=== PATIENT | female | born 1935 | race Caucasian/White ===

== ENCOUNTER 2016-05-27 13:50 | Inpatient (IN) | payer OTHER, MEDICARE ==
--- NOTE | 2016-05-27 14:46 | EDPHY ---
H & P Stated Complaint: intermittent SOB worsening x 2-3 days, but ongoing x several months Time Seen by Provider: 05/27/16 14:18 HPI/ROS: CHIEF COMPLAINT: Exertional shortness of breath HISTORY OF PRESENT ILLNESS: 81-year-old female presents with exertional shortness of breath. Onset a dry cough 1 week ago. Gradually increasing shortness of breath with exertion since then. She is short of breath with minimal exertion, such as walking to the bathroom. Associated with generalized weakness. She has been mainly sitting in a chair or lying in bed for the past few days. 2 days ago, she had multiple symptoms including nausea, dizziness and shortness of breath. She felt somewhat better yesterday, though the symptoms returned today. She has also had a vague achiness sensation in her chest, though she is unable to describe the duration of the pain. No prior similar symptoms. No known heart disease. REVIEW OF SYSTEMS: Constitutional: No fever, no chills Eyes: No visual changes ENT: No sore throat Gastrointestinal: No nausea, no vomiting, no abdominal pain Genitourinary: no dysuria Musculoskeletal: No leg pain or swelling Skin: No rash Neurological: No headache, no numbness Psychiatric: No depression - Personal History Current Tetanus/Diphtheria Vaccine: Yes Current Tetanus Diphtheria and Acellular Pertussis (TDAP): Yes Tetanus Vaccine Date: 2012 - Medical/Surgical History Hx Asthma: No Hx Chronic Respiratory Disease: No Hx Diabetes: No Hx Cardiac Disease: No Hx Renal Disease: Yes Hx Cirrhosis: No Hx Alcoholism: No Hx HIV/AIDS: No Hx Splenectomy or Spleen Trauma: No Other PMH: HTN, depression, anxiety, polymyalgia rheumatica, spinal stenosis, back surgery L2-3-4-5, cholecystectomy, cataract removal, renal impairment, KAIBAB - Social History Smoking Status: Never smoked Constitutional: Initial Vital Signs Temperature (C) 37.0 C 05/27/16 14:04 Heart Rate 94 05/27/16 14:04 Respiratory Rate 16 05/27/16 14:04 Blood Pressure 134/76 H 05/27/16 14:04 O2 Sat (%) 91 L 05/27/16 14:04 O2 Delivery Mode Room Air O2 (L/minute) 2 Allergies/Adverse Reactions: Sulfa (Sulfonamide Antibiotics) Allergy (Verified 05/27/16 16:29) Home Medications: Medication Instructions Recorded ALPRAZolam [Xanax 0.25 MG (*)] 0.25 mg PO TID 05/27/16 Aspirin EC [Aspirin EC 81 mg (*)] 81 mg PO HS 05/27/16 Atenolol [Tenormin 25 mg (*)] 25 mg PO DAILY 05/27/16 Fluticasone Nasal [Flonase Nasal 120 sprays NS HS 05/27/16 [place]] Omeprazole 20 mg PO DAILY 05/27/16 Propylene Glycol/Peg 400 [Systane 1 - 2 drops OP Q4H PRN 05/27/16 0.3-0.4% Eye Drops] amLODIPine BESYLATE [Norvasc 5 mg 2.5 - 5 mg PO HS 05/27/16 (*)] buPROPion [Wellbutrin 75mg (*)] 75 mg PO BID 05/27/16 predniSONE 4 mg PO DAILY 05/27/16 predniSONE 5 mg PO DAILY 05/27/16 Medical Decision Making - Diagnostics EKG Interpretation: EKG interpreted by me reveals normal sinus rhythm, rate 86, no ST or T segment changes. Imaging: Chest x-ray independently reviewed by me reveals no acute disease. CT pulmonary angiogram read by the radiologist reveals no evidence of pneumonia or pulmonary embolism. ED Course/Re-evaluation: This patient presents with exertional shortness of breath and hypoxia. Oxygen saturation 87% on room air. Oxygen by nasal cannula applied. Stat EKG reveals no evidence of ischemia or dysrhythmia. Chest x-ray is normal and D-dimer is elevated. CT pulmonary angiogram to rule out pulmonary embolism. CT results discussed with the patient. Fortunately there is no evidence of pneumonia or pulmonary embolism. However she is hypoxic and require admission for further evaluation of dyspnea/hypoxia. The hospitalist service was consulted for admission. ECHO ordered. Differential Diagnosis: Differential diagnosis includes though it is not limited to pneumonia, pneumothorax, pulmonary embolism, aortic dissection, pericarditis, acute coronary syndrome. - Data Points Laboratory Results: Laboratory Results 05/27/16 14:53 05/27/16 14:53 05/27/16 14:53 WBC 9.03 10^3/uL (3.80-9.50) RBC 3.87 L 10^6/uL (4.18-5.33) Hgb 12.7 g/dL (12.6-16.3) Hct 35.1 L % (38.0-47.0) MCV 90.7 fL (81.5-99.8) MCH 32.8 pg (27.9-34.1) MCHC 36.2 g/dL (32.4-36.7) RDW 14.0 % (11.5-15.2) Plt Count 355 10^3/uL (150-400) MPV 8.9 fL (8.7-11.7) Neut % (Auto) 89.6 H % (39.3-74.2) Lymph % (Auto) 4.7 L % (15.0-45.0) [place] % (Auto) 3.7 L % (4.5-13.0) Eos % (Auto) 0.1 L % (0.6-7.6) Baso % (Auto) 0.2 L % (0.3-1.7) Nucleat RBC Rel Count 0.0 % (0.0-0.2) Absolute Neuts (auto) 8.10 H 10^3/uL (1.70-6.50) Absolute Lymphs (auto) 0.42 L 10^3/uL (1.00-3.00) Absolute Monos (auto) 0.33 10^3/uL (0.30-0.80) Absolute Eos (auto) 0.01 L 10^3/uL (0.03-0.40) Absolute Basos (auto) 0.02 10^3/uL (0.02-0.10) Absolute Nucleated RBC 0.00 10^3/uL (0-0.01) Immature Gran % 1.7 H % (0.0-1.1) Immature Gran # 0.15 H 10^3/uL (0.00-0.10) D-Dimer 1.19 H ug/mLFEU (0.00-0.50) Sodium 133 L mEq/L (134-144) Potassium 3.9 mEq/L (3.5-5.2) Chloride 98 mEq/L (97-110) Carbon Dioxide 26 mEq/l (22-31) Anion Gap 9 mEq/L (8-16) BUN 19 mg/dL (7-23) Creatinine 1.3 H mg/dL (0.6-1.0) Estimated GFR 39 Glucose 150 H mg/dL (70-100) Calcium 9.1 mg/dL (8.5-10.4) Troponin I < 0.012 ng/mL (0-0.034) NT-Pro-B Natriuret Pep 588 H pg/mL (0-450) Departure - Departure Disposition: [facility] Inpatient Acute Clinical Impression: Dyspnea Condition: Fair Referrals: Caroline Nevarez, [facility] [Primary Care Provider] - As per Instructions
--- NOTE | 2016-05-27 14:55 | CPEKG ---
Heart Rate: 86 RR Interval: 698 P-R Interval: 144 QRSD Interval: 94 QT Interval: 372 QTC Interval: 445 P [place]: 55 QRS [place]: 27 T Wave [place]: 27 EKG Severity - BORDERLINE ECG - EKG Impression: SINUS RHYTHM EKG Impression: BORDERLINE INFERIOR Q WAVES Electronically Signed By: Savanna Tse 27-May-2016 15:41:26
[2016-05-27 15:02] LABS: % IMMATURE GRANULYOCYTES 1.7 % (0.0-1.1); ABSOLUTE IMMATURE GRANULOCYTES 0.15 10^3/uL (0.00-0.10); ADD DIFF? NO; ADD MORPH? NO; ADD SCAN? NO; ATYPICAL LYMPHOCYTE FLAG 0 (0-99); FRAGMENT RBC FLAG 30 (0-99); HEMATOCRIT 35.1 % (38.0-47.0); HEMOGLOBIN 12.7 g/dL (12.6-16.3); LEFT SHIFT FLG 10 (0-99); LIPEMIA HEMOLYSIS FLAG 90 (0-99); MEAN CELL HEMOGLOBIN 32.8 pg (27.9-34.1); MEAN CELL HEMOGLOBIN CONCENTR. 36.2 g/dL (32.4-36.7); MEAN CELL VOLUME 90.7 fL (81.5-99.8); MEAN PLATELET VOLUME 8.9 fL (8.7-11.7); PLATELET CLUMPS FLAG 0 (0-99); PLATELET COUNT 355 10^3/uL (150-400); RED BLOOD CELL COUNT 3.87 10^6/uL (4.18-5.33)
[2016-05-27 15:11] LABS: ANION GAP 9 mEq/L (8-16); CALCIUM 9.1 mg/dL (8.5-10.4); CARBON DIOXIDE 26 mEq/l (22-31); CHLORIDE 98 mEq/L (97-110); CREATININE 1.3 mg/dL (0.6-1.0); GLOMERULAR FILTRATION RATE 39; GLUCOSE 150 mg/dL (70-100); POTASSIUM 3.9 mEq/L (3.5-5.2); SODIUM 133 mEq/L (134-144)
[2016-05-27 15:23] LABS: TROPONIN I < 0.012 ng/mL (0-0.034)
[2016-05-27] MEDS ORDERED: IOPAMIDOL (ISOVUE 370) 100 ML BTL IV ONE (15:33)
--- NOTE | 2016-05-27 15:37 | DX ---
Chest, PA and Lateral History: Dyspnea Comparison: May 08, 2015 Findings: Lungs are clear, without infiltrate or consolidation. Heart size is normal. There is chroni c dense atherosclerotic calcification of the mildly tortuous thoracic aorta. There is no adenopathy o r mass lesion. There is no pleural effusion or pneumothorax. There is a chronic upper lumbar scoliosi s. Right upper quadrant surgical clips are again present and consistent with previous cholecystectomy . Oxygen tubing overlies the chest. Impression: 1. Nothing acute identified. 2. No pneumonia. 3. Atherosclerotic disease.
--- NOTE | 2016-05-27 16:45 | CT ---
CT Chest Angiogram, 4:01 p.m. Indication: Chest pain and dyspnea. Technique: Thinly collimated multidetector helical CT imaging was performed through the chest while 75 mL of Isovue-370 were injected intravenously without complication. The images were then transferr ed to an independent workstation where multiplanar reconstructions were performed. Dose reduction liz hniques were utilized. Comparison: Two-view chest dated May 27, 2016. Findings: CT Chest Angiogram: The pulmonary arterial system is well opacified. No intraluminal filling defect s to suggest acute or chronic thrombopulmonary embolic disease. The normal caliber thoracic aorta has extensive calcified and noncalcified plaque. No dissection or penetrating ulcer. Calcified plaque is present along the left anterior descending and right coronary arteries. CT Chest: Lungs are clear except for minimal diffuse peribronchial thickening and minimal posterior d ependent atelectasis. No endobronchial lesion, mucous plugging, consolidation, edema or mass. The hea rt size is normal. No pericardial or pleural effusion. No enlarged lymph node or mass throughout the axilla, mediastinum, pulmonary karina, or imaged portion of the upper abdomen. No compression fracture or bone lesion. Impression: 1. No evidence of thrombopulmonary embolic disease. 2. Atherosclerotic normal-caliber aorta. No dissection. 3. Clear lungs. Minimal airways disease. No pneumonia or edema. 4. Calcified coronary plaque. The results were discussed with Dr. Savanna Tse at 4:35 p.m. May 27, 2016.
[2016-05-27] MEDS ORDERED: ONDANSETRON DISINTEGRATING 4 MG TAB PO PRN (17:35)
[2016-05-27] MEDS ORDERED: ACETAMINOPHEN 325 MG TAB PO PRN (17:35)
[2016-05-27] MEDS ORDERED: TEMAZEPAM 15 MG CAP PO PRN (17:35)
[2016-05-27] MEDS ORDERED: ONDANSETRON 4 MG/2 ML VIAL IVP PRN (17:35)
[2016-05-27] MEDS ORDERED: ALBUTEROL 60 PUFFS/8 GM MDI IH PRN (17:35)
[2016-05-27] MEDS ORDERED: ASPIRIN 325 MG TAB PO ONE (17:42)
[2016-05-27] MEDS ORDERED: NITROGLYCERIN 0.4 MG BTL SL PRN (17:42)
[2016-05-27 18:08] LABS: HEMOGLOBIN A1C 6.1 % (4.0-6.0)
--- NOTE | 2016-05-27 18:30 | GHP ---
[f rep st] HISTORY AND PHYSICAL DATE OF ADMISSION: 05/27/2016 CHIEF COMPLAINT: Shortness of breath and dyspnea on exertion. HISTORY OF PRESENT ILLNESS: The patient is an 81-year-old female with a history of polymyalgia rheumatica and GERD, who presents to the emergency department complaining of shortness of breath over the past several days. She reports she has a chronic cough which has been present for the past 3 years, ever since moving to [place]. She describes this as nonproductive. She also complains of hoarseness and acid reflux symptoms. When she coughs during the exam it sounds suspicious for bronchospasm. She is currently a nonsmoker and quit almost 40 years ago, but she does have a 10-20 pack year tobacco history. She reports her chronic cough has become more significant over the past week. In addition, she has developed shortness of breath and at times feels sweaty, clammy and nauseous. These symptoms can be associated with lightheadedness and seem to be worse with exertion. She describes feeling dyspneic, sweaty and nauseous when trying to climb a flight of stairs. She denies chest pain during these episodes. However, after coughing during my interview, she began to complain of chest heaviness. She does not use oxygen at home. However, in the emergency department she was found to be mildly hypoxemic with oxygen saturation of 91% on room air. She had an elevated D-dimer though her CT pulmonary angiogram was negative for pulmonary embolism. She is admitted to the hospital for further evaluation of her dyspnea on exertion and hypoxemia. PAST MEDICAL HISTORY: 1. Chronic kidney disease. 2. Hypertension. 3. Depression, anxiety. 4. Polymyalgia rheumatica. 5. Chronic steroid use. 6. GERD. 7. Spinal stenosis. PAST SURGICAL HISTORY: 1. Back surgery L2 through L5. 2. Cholecystectomy. 3. Cataract surgery. MEDICATIONS: Please see [facility] for complete updated outpatient medication list. ALLERGIES: Include sulfa. FAMILY HISTORY: Her brother at age 63 of an [facility]. Her sister also at age 76 of an [facility]. SOCIAL HISTORY: The patient lives alone. She is . As above, she quit smoking 40 years ago but has a 10-20 pack year tobacco history. She reports occasional wine, 1-2 glasses several nights a week. She is fully independent in her activities of daily living, though this recent shortness of breath has made her ADLs more difficult. REVIEW OF SYSTEMS: A 10-point review of systems is performed and is negative except as per HPI. OBJECTIVE: VITAL SIGNS: Temperature is 36.9, blood pressure 140/79, heart rate 81, respiratory rate 14. She is 97% on 3 L of oxygen by nasal cannula. GENERAL: The patient is awake, alert, oriented, no acute distress. HEENT: Head is atraumatic, normocephalic. Pupils equal, round, react to light. Extraocular muscles are intact. Oropharynx is clear. Mucous members are moist. She has a hoarse voice. Frequently clears her throat. Her cough is harsh and bronchospastic in nature. HEART: Regular rate and rhythm without murmur. LUNGS: Clear to auscultation bilaterally. ABDOMEN: Soft, nondistended, nontender with normoactive bowel sounds. EXTREMITIES: Without cyanosis, clubbing, or edema. NEUROLOGIC: Grossly nonfocal. LABORATORY DATA: CBC reveals a normal white blood cell count, although she does have a neutrophil shift. D-dimer is elevated at 1.2. Basic metabolic panel reveals low sodium of 133, creatinine 1.3, blood sugar 150. Troponin is negative. NT proBNP is 588. Chest x-ray shows no evidence of pneumonia, pleural effusion or pneumothorax. Atherosclerotic disease is noted in her thoracic aorta. CT pulmonary angiogram is negative for pulmonary embolism. Again atherosclerotic aorta is noted without dissection. There was also a calcified coronary plaque present in the LAD and right coronary artery. EKG showed no ST-segment or T-wave changes suggestive of acute ischemia. ASSESSMENT AND PLAN: The patient is an 81-year-old female who is admitted to the hospital for acute hypoxemic respiratory failure and dyspnea on exertion. 1. Acute hypoxemic respiratory failure. The patient is mildly hypoxemic on room air and is requiring 2 L of oxygen at this time. Differential diagnosis includes chronic airway disease versus bronchitis, both of which may be hastened by uncontrolled acid reflex versus pulmonary hypertension vs other cardiac etiologies such as valvular heart disease or an acute coronary syndrome. She likely needs to undergo outpatient PFT's. I will start her on q.4 hours DuoNeb and p.r.n. albuterol nebs here, along with supplemental oxygen. I do not see any indication of an acute bacterial infection; thus, will defer antibiotics. Will obtain an echocardiogram to further evaluate for underlying valve disease or pulmonary hypertension. Will continue to trend her O2 needs and determine if she needs home oxygen. 2. Dyspnea on exertion. As above, this may be an underlying viral versus a chronic bronchitis picture. We will see how she responds to nebs and she may benefit from outpatient inhalers at discharge. Echo is pending. I considered a possible anginal variant. Her cardiac risk factors include family history of premature heart disease, distant tobacco history and an elevated LDL of 170. I will give her full-dose aspirin, statin and continue her BB. Will trend her troponin and repeat her EKG. At this time her EKG appears nonischemic. I discussed the case with Dr. Churchill and he will consult in the morning. At the very least, she should be risk stratified, possibly with a nuc stress test, prior to discharge. If cardiac etiology is ruled out, would again consider underlying chronic lung disease and she may benefit from an outpatient pulmonology referral. 3. Acute kidney injury versus chronic kidney disease. Her last creatinine was 1.3. It is stable at 1.3 today. She has outpatient followup with nephrology planned. We will continue to monitor. 4. Hyponatremia. This is mild. She appears relatively euvolemic on exam. I will fluid restrict her tonight and we will recheck this in the morning. Obtain urine studies if it persists or worsens. 5. Polymyalgia rheumatica. I will continue her chronic prednisone, though query if this might be hastening her GERD symptoms. 6. Gastroesophageal reflux disease. This is poorly controlled and may be playing a role in her presentation. She is on both Zantac and proton pump inhibitor. I will increase her proton pump inhibitor dose to twice daily and continue her on nightly Zantac. She may benefit from outpatient gastroenterology evaluation as I query if her uncontrolled acid reflex could be worsening her respiratory status. 7. Depression, anxiety. Will continue her Wellbutrin. 8. Deep venous thrombosis prophylaxis: Lovenox. CODE STATUS: Patient is full code. DISPOSITION: Patient is admitted to inpatient status as I suspect she may require greater than 48 hours hospitalization for ongoing workup and management of her hypoxemia and dyspnea on exertion. /[id number]/MODL MTDD
[2016-05-27] MEDS: PANTOPRAZOLE SODIUM 40 MG TAB PO SCH (20:17)
[2016-05-27] MEDS: RANITIDINE HCL 150 MG/10 ML UDCUP PO SCH (20:17)
[2016-05-27] MEDS: amLODIPine BESYLATE 5 MG TAB PO SCH (20:18)
[2016-05-27] MEDS: ATORVASTATIN CALCIUM 40 MG TAB PO SCH (20:18)
[2016-05-27] MEDS: buPROPion 75 MG TAB PO SCH (20:19)
[2016-05-27] MEDS: FLUTICASONE NASAL 120 SPRAYS/16 GM MDI NS SCH (20:19)
[2016-05-27] MEDS: ALPRAZolam 0.25 MG TAB PO SCH (20:22)
[2016-05-27] MEDS: IPRATROPIUM/ALBUTEROL 3 ML DEYVIAL IH SCH ×2 (20:39→20:41)
[2016-05-28 05:10] LABS: % IMMATURE GRANULYOCYTES 1.6 % (0.0-1.1); ABSOLUTE IMMATURE GRANULOCYTES 0.13 10^3/uL (0.00-0.10); ADD DIFF? NO; ADD MORPH? NO; ADD SCAN? NO; ATYPICAL LYMPHOCYTE FLAG 10 (0-99); FRAGMENT RBC FLAG 0 (0-99); HEMATOCRIT 34.3 % (38.0-47.0); HEMOGLOBIN 11.7 g/dL (12.6-16.3); LEFT SHIFT FLG 10 (0-99); LIPEMIA HEMOLYSIS FLAG 90 (0-99); MEAN CELL HEMOGLOBIN 32.1 pg (27.9-34.1); MEAN CELL HEMOGLOBIN CONCENTR. 34.1 g/dL (32.4-36.7); MEAN PLATELET VOLUME 9.1 fL (8.7-11.7); PLATELET CLUMPS FLAG 0 (0-99); PLATELET COUNT 258 10^3/uL (150-400); RED BLOOD CELL COUNT 3.65 10^6/uL (4.18-5.33)
[2016-05-28 05:25] LABS: INR 0.98 (0.83-1.16); PROTIME(PATIENT) 12.9 SEC (12.0-15.0)
[2016-05-28 05:40] LABS: ANION GAP 8 mEq/L (8-16); CALCIUM 8.9 mg/dL (8.5-10.4); CARBON DIOXIDE 26 mEq/l (22-31); CHLORIDE 102 mEq/L (97-110); CREATININE 1.3 mg/dL (0.6-1.0); GLOMERULAR FILTRATION RATE 39; GLUCOSE 82 mg/dL (70-100); POTASSIUM 3.7 mEq/L (3.5-5.2); SODIUM 136 mEq/L (134-144)
[2016-05-28 05:44] LABS: TROPONIN I < 0.012 ng/mL (0-0.034)
[2016-05-28] MEDS: IPRATROPIUM/ALBUTEROL 3 ML DEYVIAL IH SCH ×4 (08:06→21:57)
--- NOTE | 2016-05-28 09:08 | CPEKG ---
Heart Rate: 79 RR Interval: 759 P-R Interval: 140 QRSD Interval: 92 QT Interval: 376 QTC Interval: 432 P [place]: 62 QRS [place]: 46 T Wave [place]: 9 EKG Severity - NORMAL ECG - EKG Impression: SINUS RHYTHM Electronically Signed By: Maribel Zazueta 28-May-2016 09:54:36
[2016-05-28] MEDS: predniSONE 5 MG TAB PO SCH (09:14)
[2016-05-28] MEDS: predniSONE 1 MG TAB PO SCH (09:14)
[2016-05-28] MEDS: buPROPion 75 MG TAB PO SCH ×2 (09:15→21:04)
[2016-05-28] MEDS: ALPRAZolam 0.25 MG TAB PO SCH ×3 (09:15→21:19)
[2016-05-28] MEDS: PANTOPRAZOLE SODIUM 40 MG TAB PO SCH ×2 (09:16→21:04)
[2016-05-28] MEDS: ATENOLOL 25 MG TAB PO SCH (09:16)
[2016-05-28] MEDS: ATORVASTATIN CALCIUM 40 MG TAB PO SCH (09:16)
[2016-05-28] MEDS ORDERED: AZITHROMYCIN 250 MG TAB PO ONE ×2 (10:26→12:00)
--- NOTE | 2016-05-28 12:01 | ECHO ---
[id number] + + [id number] : : [place] [id number] : : [phone] + + Adult Echocardiographic Report + + :Name: ROBB MARCH LStudy Date: 05/28/2016 09:40 AM BP: 139/74 mmHg : : Hospital Admission Number: [id number] Lo cation: 208: :: 1935 Gender: Female Height: 62 in : :Age: 81 yrs Race: WH Weight: 16 7 lb : :Reason For Study: cp sob : : BSA: 1.8 m eters2 : :History: CP SOB : + + MMode/2D Measurements & Calculations IVSd: 1.1 cm RVDd: 3.0 cm FS: 31.8 % Ao root diam: LVPWd: 0.99 cm LVIDd: 3.4 cm EDV(Teich): 2.9 cm LVIDs: 2.3 cm 46.6 ml ESV(Teich): 18.1 ml EF(Teich): 61.0 % LVLd ap4: 7.4 cm SV(MOD-sp4): EDV(MOD-sp4): 69.0 ml 94.0 ml LVLs ap4: 5.6 cm ESV(MOD-sp4): 25.0 ml EF(MOD-sp4): 73.4 % Normal Measurement Values: + + :LVIDd (3.5-5.7cm) IVSd (0.6-1.1cm) LVPWd (0.6-1.1cm) Aortic Root (2.0-3.7cm)Left Atrium (1.5-4.0cm): :LV Vol(d) (76-115ml) LV Vol(s) (29-48ml) Ejec Fraction (50-65%)PV Deshaun (0.6- 1.2m/s) TV Deshaun (0.4-1.0m/s) : :MV E Deshaun (0.8-1.0m/s)MV A Deshaun (0.3-1.0m/s)LVOT Deshaun (0.7-1.2m/s) Asc Ao Deshaun ( 0.9-1.8m/s) : + + Doppler Measurements & Calculations MV E max deshaun: Ao V2 max: LV V1 max: PA V2 max: 48.4 cm/sec 113.4 cm/sec 103.7 cm/sec 87.7 cm/sec MV A max deshaun: Ao max PG: LV V1 max PG: PA max P.7 cm/sec 5.1 mmHg 4.3 mmHg 3.1 mmHg MV E/A: 0.78 MV dec time: 0.31 sec TR max deshaun: 276.9 cm/sec TR max P.7 mmHg RAP systole: 5.0 mmHg RVSP(TR): 35.7 mmHg Left Ventricle The left ventricle is normal in size and function. There is borderline concentric left ventricular hypertrophy. There is Doppler evidence for diastolic dysfunction. Ejection Fraction = 65%. The left ventricular ejection fraction is calculated at 61.0 %. No regional wall motion abnormalities noted. Right Ventricle The right ventricle is normal in size and function. The right ventricular systolic function is normal. Atria The left atrial size is normal. Right atrial size is normal. Mitral Valve Mitral valve leaflets are thickened and there is a bright/calcific focal thickening of the tip of the anterior leaflet. There is borderline mitral valve prolapse. There is mild to moderate mitral regurgitation. Tricuspid Valve The tricuspid valve is normal in structure and function. There is no tricuspid stenosis. There is moderate tricuspid regurgitation. Right ventricular systolic pressure is 36mmHg. There is Doppler evidence for mild pulmonary hypertension. Aortic Valve The aortic valve is trileaflet. There is no aortic stenosis. There is no aortic insufficiency. Pulmonic Valve The pulmonic valve is not well visualized. Great Vessels The aortic root is normal size. Pericardium/Pleural There is no pericardial effusion. There is a fat pad seen. Conclusion A two-dimensional transthoracic echocardiogram with M-mode and Doppler was performed. (1) Left ventricular systolic ejection fraction was normal (65%) - normal wall motion (2) Borderline concentric left ventricular hypertrophy (3) Diastolic dysfunction was present (4) Grossly normal right ventricular size and function (5) Normal atrial dimensions (6) Mild to moderate mitral regurgitation. Borderline MVP. Calcified nodule to the anterior leaflet (7) Trileaflet aortic valve without sclerosis or insufficiency (8) Moderate tricuspid regurgitation - RVSP was estimated to be 35- 40 mm Hg (9) Poor visualization of the pulmonic valve (10) No comparison echocardiograms (11) Given the pathology to the mitral valve, would have repeat echocardiogram in one year Final Reading Physician: James Bowles signed on 05/28/2016 12:00 PM Ordering Physician: VIVIANE JOHNS Performed By: Eugenia Cevallos
--- NOTE | 2016-05-28 12:49 | PDDCSUM ---
Discharge Summary Discharge Summary: Dates of service 05/27-05/28/16 Consultations: none Procedures performed: echocardiogram, CTA chest Brief HPI: 81 yo F with pmh of gerd and recurrent bouts of prolonged cough and sob of unclear etiology presenting with recurrent prolonged cough and acute hypoxic respiratory failure felt to be likely 2/2 cough variant RAD. Hospital course by problem: # acute hypoxic respiratory failure: with w/u including CTA of the chest showing no PE, no PNA, no pulmonary edema or other abnormality, echo without explanation for her sxs really. Given history including repeated bouts with normal imaging and essentially normal exam suspect that this is related to cough variant RAD. Will start on advair and continue albuterol, short course of azithro, continue PPI. F/u with pulmonary for PFTs and dc home on supplemental o2 at 2L. # VHD: echo performed as part of w/u for above, noted to have moderate TR, mild to moderate MR and borderline MVP with calcified nodule on anterior leaflet. Plan is for f/u with cardiology and repeat echo in 1 year. # ckd: seems to be at baseline, continue f/u with op # PMR: continue low dose prednisone, no acute issues # gerd: may be contributing to problem 1 # gait instability: chronic, w Dispo: dc home with f/u with PCP, cardiology, pulmonary Meds: continue home meds, addition of azithromycin, albuterol, advair > 35 min spent in care of this patient, more than half in face to face counseling regarding f/u care plans after dc
[2016-05-28] MEDS: FLUTICASONE/SALMETER 250/50MCG DISKUS IH SCH ×2 (13:35→21:57)
--- NOTE | 2016-05-28 14:05 | HOSPPROG ---
Hospitalist Progress Note Assessment/Plan: 81 yo F with pmh of ckd, PMR, gerd presenting with sob/cough/chest pressure. # acute hypoxic respiratory failure: with w/u including CTA of the chest showing no PE, no PNA, no pulmonary edema or other abnormality, echo without explanation for her sxs really. ? cough variant RAD. Advair, albuterol, azithromycin. # chest pain: with e/o CAD on ct imaging, somewhat vague history but with intermittent chest pressure over the last several years. Echo w/o wall motion abnormality but given ongoing cp and CAD on imaging plan for cath # VHD: echo performed as part of w/u for above, noted to have moderate TR, mild to moderate MR and borderline MVP with calcified nodule on anterior leaflet. Plan is for f/u with cardiology and repeat echo in 1 year. # ckd: seems to be at baseline, continue to folow # PMR: continue low dose prednisone, no acute issues # gerd: may be contributing to problem 1 # gait instability: chronic, with more issues given need for o2, will dc with walker # dispo: IP status, will need > 48 hours stay for eval/mgmt of above > 35 minutes spent in care of this patient. She is new to my care. Reviewed care plan with cardiology. Objective: Vital Signs Temp Pulse Resp BP Pulse Ox 36.6 C 77 15 115/69 95 05/28/16 11:49 05/28/16 11:49 05/28/16 11:49 05/28/16 11:49 05/28/16 11:49 Laboratory Results 05/28/16 03:42 05/28/16 03:42 05/27/16 05/28/16 05/29/16 05:59 05:59 05:59 Intake Total 120 Balance 120 PT 12.9 SEC (12.0-15.0) 05/28/16 03:42 INR 0.98 (0.83-1.16) 05/28/16 03:42 - Time Spent With Patient Time Spent with Patient: greater than 35 minutes Time Spent with Patient: Greater than 35 minutes spent on this patients care, greater than 50% of time spent counseling, educating, and coordinating care regarding the above mentioned plan. ICD10 Worksheet Patient Problems: Problems Problem Status Diagnosed Dyspnea Acute
[2016-05-28] MEDS ORDERED: ASPIRIN EC 325 MG TAB PO ONE ×2 (14:21→14:54)
[2016-05-28] MEDS ORDERED: diphenhydrAMINE 25 MG CAP PO ONE ×2 (14:21→14:53)
[2016-05-28] MEDS ORDERED: DIAZEPAM 5 MG TAB PO ONE (14:21)
[2016-05-28] MEDS ORDERED: LIDOCAINE 1% 30 ML SDV ONE (14:50)
[2016-05-28] MEDS ORDERED: fentaNYL 100 MCG/2 ML INJ ONE (14:50)
[2016-05-28] MEDS ORDERED: IOPAMIDOL (ISOVUE-370) 150 ML BTL IV ONE (14:50)
[2016-05-28] MEDS ORDERED: MIDAZOLAM 2 MG/2 ML VIAL ONE (14:50)
[2016-05-28] MEDS ORDERED: DIAZEPAM 5 MG TAB ONE (14:54)
[2016-05-28] MEDS ORDERED: FAMOTIDINE 20 MG TAB ONE (14:54)
--- NOTE | 2016-05-28 14:58 | GCON ---
[f rep st] CONSULTATION CARDIAC CONSULTATION DATE OF CONSULTATION: 05/28/2016 CHIEF COMPLAINT: Shortness of breath and cough. HISTORY OF PRESENT ILLNESS: The patient is an 81-year-old female who was found to have significant c oronary disease on a CT scan, which prompted a cardiac consultation. On , she developed a co ugh with associated shortness of breath. Her symptoms persisted over the next few days, but on she also became nauseous and diaphoretic. Her shortness of breath became worse, and therefore she presented to the ER. She had a pulmonary CT angiogram which was negative for thrombo pulmonary embol ic disease, but she was found to have significant coronary disease within the LAD and right coronary artery. Upon further questioning, the patient does admit to having significant dyspnea on exertion a nd intermittent chest heaviness over the past few years. Her exercise recently has been limited due to back pain, but she does note that she had shortness of breath and chest heaviness with walking arie n the hallway. Her risk factors for coronary artery disease include dyslipidemia, borderline diabete s, hypertension, prior tobacco use, and a family history of coronary disease. Her brother had a fata l WY at the age of 63, and her sister had a fatal WY at the age of 78. She has multiple cousins who have been diagnosed with coronary disease. Her other history includes chronic renal insufficiency wi th a baseline creatinine of 1.3. PAST MEDICAL HISTORY: Polymyalgia rheumatica, osteoarthritis, spinal stenosis, chronic kidney diseas e, hypertension, borderline diabetes, depression and anxiety, reflux. PAST SURGICAL HISTORY: Back surgery x2, cholecystectomy, and cataract surgery. FAMILY HISTORY: As stated above. Her brother had a fatal WY at the age of 63, and her sister had a fatal WY at the age of 78. She also had multiple cousins with coronary disease. SOCIAL HISTORY: She has a history of tobacco use but quit 40 years ago. She is currently accompanie d by her [id number]. She is and currently lives alone. MEDICATIONS: See medication list. ALLERGIES: Sulfa. REVIEW OF SYSTEMS: Negative except for what is stated in the H and P. PHYSICAL EXAMINATION: GENERAL: Patient appears in no acute distress. VITAL SIGNS: Blood pressure 115/69, heart rate 77, oxygen saturation 95% on 2 L, afebrile. LUNGS: Clear to auscultation. No wh eezes, rhonchi, or crackles auscultated. CARDIAC: Regular rate and rhythm without any significant m urmurs, rubs, or gallops appreciated. ABDOMEN: Soft, nontender, nondistended. Bowel sounds present . EXTREMITIES: 1+ pulses bilaterally. NEUROLOGIC: Nonfocal. PSYCHIATRIC: Mood and affect approp riate. SKIN: No obvious rashes or ecchymosis identified. LABORATORY: Troponin negative x3. BNP 588. Sodium 136, potassium 3.7, chloride 102, bicarb 26, BUN 22, creatinine 1.3. Triglycerides 150, total cholesterol 284, LDL 170, HDL 84. IMAGING STUDIES: CTA of the chest was negative for pulmonary embolus. She does have significant francois cified coronary plaque within the distribution of the LAD and right coronary artery. There is also a question of significant disease within the left subclavian. Her echocardiogram showed preserved LV function with an ejection fraction of 65%. There is mild to m oderate mitral regurgitation, moderate tricuspid regurgitation with right ventricular systolic pressu res of 35-40. Her EKG shows normal sinus rhythm with minimal ST depression in leads V4 and V5. ASSESSMENT: The patient is an 81-year-old female who presents with multiple risk factors for coronar y disease, angina, and coronary calcification by CT scan. PLAN: The patient is an 81-year-old female who presented to the hospital with symptoms more consiste nt with bronchitis but does have a history of symptoms concerning for angina. She was also found to have heavily calcified coronary arteries by CT scan. Her risk factors for coronary disease include h yperlipidemia, hypertension, borderline diabetes, prior tobacco use, and a strong family history of c oronary disease. I do think she needs further evaluation of her coronary circulation. Treatment opt ions, including nuclear stress test versus angiogram, were discussed with her today. Unfortunately, I think she would be at risk for a false negative stress test given her multivessel coronary disease. Ultimately, I think she needs an angiogram, which she is on board with. The risks, benefits, and a lternatives of the procedure have been discussed with her and she would like to proceed. She does mcgrath ve chronic renal insufficiency with a baseline creatinine of 1.3, which is currently stable. We will try to use as little dye as possible. Ultimately, she will need treatment of her risk factors with statin therapy, aspirin, and ideally beta thee for blood pressure control. /[id number]/MODL
--- NOTE | 2016-05-28 16:39 | PDDXCAT ---
Diagnostic Cath Note - . Date: 05/28/16 Solar Fabrication Technician: Param Indication: other (Chest discomfort; risk facotrs for CAD; coronary calcification on chest CT) - Procedure Access: right groin Procedure: left heart catheterization, coronary angiography, left ventriculogram , right heart catheterization - Materials Left Heart Cath size: 6F Left Heart Cath materials: standard multipack (JL4, JR4, pigtail) Right Heart Cath size: 7F Right Heart Cath materials: PWP catheter - Findings-Left Heart Catheterization LM: Normal. LAD: Mild to moderate irregularities up to 40%. LCX: Mild irregularities. RCA: Mild irregularities. Ramus: Mild irregularities. EDP: 24 mmHg LVEF: 65% Wall motion: Normal - Findings-Right Heart Catheterization RA: 8 mmHg RV: 38/6 mmHg PA: 36/12/22 mmHg O2 sat 67.7% PAOP: 22 mmHg AO: 144/64/98 mmHg O2 sat 94.7% CO: 5.12 L/min CI: 2.91 L/min/sq mtr Complications: None Estimated blood loss: <50ml Closure method: Angioseal Assessment: 1) Normal LV systolic function. 2) CAD as described above. 3) Elevated PCWP and LVEDP but otherwise relatively normal right heart pressures. Plan: Medical management/CAD secondary prevention Patient Problems: Problems Problem Status Diagnosed Dyspnea Acute
[2016-05-28] MEDS ORDERED: ATROPINE SULFATE 1 MG/10 ML SYR ONE (16:54)
[2016-05-28] MEDS ORDERED: HYDROCODONE/APAP 5/325 TAB PO PRN (18:58)
[2016-05-28] MEDS ORDERED: ATROPINE SULFATE 1 MG/10 ML SYR IVP PRN (18:58)
[2016-05-28] MEDS ORDERED: ASPIRIN EC 81 MG TAB PO SCH (21:00)
[2016-05-28] MEDS: amLODIPine BESYLATE 5 MG TAB PO SCH (21:04)
[2016-05-28] MEDS: RANITIDINE HCL 150 MG/10 ML UDCUP PO SCH (21:05)
[2016-05-28] MEDS: FLUTICASONE NASAL 120 SPRAYS/16 GM MDI NS SCH (21:18)
[2016-05-29 04:54] VITALS: BP 133/69
[2016-05-29] MEDS: IPRATROPIUM/ALBUTEROL 3 ML DEYVIAL IH SCH ×2 (05:17→09:21)
[2016-05-29 07:41] VITALS: TEMP 97.9
[2016-05-29] MEDS: predniSONE 1 MG TAB PO SCH (08:42)
[2016-05-29] MEDS: ALPRAZolam 0.25 MG TAB PO SCH (08:42)
[2016-05-29] MEDS: predniSONE 5 MG TAB PO SCH (08:43)
[2016-05-29] MEDS: ATORVASTATIN CALCIUM 40 MG TAB PO SCH (08:43)
[2016-05-29] MEDS: buPROPion 75 MG TAB PO SCH (08:43)
[2016-05-29] MEDS: PANTOPRAZOLE SODIUM 40 MG TAB PO SCH (08:43)
[2016-05-29] MEDS: ATENOLOL 25 MG TAB PO SCH (08:43)
[2016-05-29] MEDS ORDERED: AZITHROMYCIN 250 MG TAB PO SCH (09:00)
[2016-05-29] MEDS: FLUTICASONE/SALMETER 250/50MCG DISKUS IH SCH (09:21)
[2016-05-29 09:27] VITALS: PULSE 79; RESP 18; O2SAT 95
--- NOTE | 2016-05-29 10:58 | PDCARPN ---
Cardiology Progress Note Chief Complaint: SOB Assessment/Plan: Assessment/Plan: The patient was admitted with MONGE and found to have significant coronary calcification by pulmonary CTA. She also has multiple risk factors for CAD including HTN, borderline DM, HLP, and a family history of CAD. She had a angiogram yesterday which showed nonobstructive CAD with a stenosis no greater than 40%. She should be treated with statins, BB, and Aspirin. Ideally her LDL should be treated to less than 70. She denies any discomfort from the right groin where access was obtained for the angiogram. 05/29/16 10:55 Subjective: She denies any CP, progression in her SOB, or palpitations. Objective: Vital Signs (8 Hrs) Temp Pulse Resp BP Pulse Ox 05/29/16 09:20 79 18 95 05/29/16 07:36 36.6 C 80 90 H 05/29/16 04:00 36.8 C 81 20 133/69 H 94 Intake/Output (24 Hrs) 05/28/16 05/29/16 05/30/16 05:59 05:59 05:59 Intake Total 220 Balance 220 Intake: Oral (ml) 220 Other: Intake Quantity Yes Sufficient Number of Voids Toilet 1 Result Diagrams: 05/28/16 03:42 05/28/16 03:42 - Physical Exam Constitutional: WDWN Cardiovascular: regular rate and rhythm, no murmurs, no rubs Respiratory: clear to auscultate bilat, no crackles, no wheezes Skin: no edema ICD10 Worksheet Patient Problems: Problems Problem Status Diagnosed Dyspnea Acute
--- NOTE | 2016-05-29 15:48 | GDS ---
[f rep st] DISCHARGE SUMMARY DISCHARGE DIAGNOSES: Include: 1. Acute hypoxic respiratory failure. 2. Acute chest pain. 3. Valvular heart disease. 4. Chronic kidney disease. 5. Polymyalgia rheumatica, on chronic prednisone. 6. Gastroesophageal reflux disease. 7. Gait instability, chronic. HISTORY OF PRESENT ILLNESS: An 81-year-old female, who presented on 05/27/2016 with complaints of chest pain and shortness of breath. For details of patient' s initial presentation, please see the history and physical dated 05/27/2016. CONSULTATIVE SERVICES: Include Cardiology. PROCEDURES: On 05/27/2016, patient had a CTA of the chest that showed no thromboembolic disease, clear lungs. On 05/27/2016, patient had a transthoracic echocardiogram that showed normal LV size and function with Doppler evidence of diastolic dysfunction, no regional wall motion abnormalities. On 05/28/2016, patient underwent cardiac catheterization which showed mild vascular regularities, no significant stenoses. HOSPITAL COURSE BY ISSUE: 1. Chest pain: Patient was brought in, had thorough initial evaluation, 3 negative troponins. Patient was taken for cardiac catheterization by Dr. Virgen on 05/28/2016, where diffuse minimal vascular irregularities were visualized. Patient had her medications maximized and be discharged for outpatient followup. 2. Acute hypoxic respiratory failure: Patient was weaned off oxygen the morning of her disposition, intermittently requiring 1 L to maintain sats above 90%. She will be sent with this level of oxygen supplementation and follow in the Cardiology Clinic post disposition for oxygen, saturation checks, and anticipated discontinuation. 3. Hypertension: Patient was continued on her medications. Again, will follow in the outpatient Cardiology Clinic. 4. Polymyalgia rheumatica: Patient was continued on her home dosing of prednisone. MEDICATIONS AT THE TIME OF DISPOSITION: Please reference medication reconciliation printed on 03/28/2017. FOLLOWUP APPOINTMENTS: Include Cardiology in 7-14 days for her first post disposition followup. PENDING STUDIES AT THE TIME OF THIS DICTATION: None. I spent > 30 minutes in the planning and coordination of this discharge. /[id number]/MODL MTDD
== END 2016-05-29 11:31 | disposition home or self-care (01) | DRG 286 ==
LOC: INTOOBSV 16:56 → F2W 17:49 → OBSVTOIN 05-28 14:00
PROVIDERS: ADMIT Hospitalist; ATTEND Hospitalist
PROC: B2111ZZ Fluoroscopy of Multiple Coronary Arteries using Low Osmolar Contrast (ICD-10-PCS; principal; 2016-05-28)
PROC: 4A023N8 Measurement of Cardiac Sampling and Pressure, Bilateral, Percutaneous Approach (ICD-10-PCS; principal; 2016-05-28)
PROC: B2161ZZ Fluoroscopy of Right and Left Heart using Low Osmolar Contrast (ICD-10-PCS; principal; 2016-05-28)
DX: R07.9 Chest pain, unspecified (principal); J96.01 Acute respiratory failure with hypoxia; N18.9 Chronic kidney disease, unspecified; I12.9 Hypertensive chronic kidney disease with stage 1 through stage 4 chronic kidney disease, or unspecified chronic kidney disease; M35.3 Polymyalgia rheumatica; K21.9 Gastro-esophageal reflux disease without esophagitis; R26.9 Unspecified abnormalities of gait and mobility; Z79.52 Long term (current) use of systemic steroids
CPT/HCPCS: 97161-GP; 97162-GP; 97165-GO; C1760; G8978-GP-CJ; G8979-GP-CI; G8987-GO-CI; G8988-GO-CI; J0461; J1644; J2250; J3010; Q9967

== ENCOUNTER → 2016-11-28 | Outpatient (CLI) | payer OTHER, MEDICARE | LOC: CIMAGING 10:40 | PROVIDERS: ATTEND Nurse Practitioner | DX: Z01.818 Encounter for other preprocedural examination (principal); J94.1 Fibrothorax; M16.12 Unilateral primary osteoarthritis, left hip; M41.85 Other forms of scoliosis, thoracolumbar region | CPT/HCPCS: 71020-PO; 93005-PO; G0463-PO ==

== ENCOUNTER 2016-12-02 10:00 | Inpatient (IN) | payer OTHER, MEDICARE ==
[~2016-12-02 10:00] MED LIST: POVIDONE-IODINE 20 ML in SODIUM CL IRRIG SOLUTION 500 ML IRR ONE; ROPIVACAINE 0.2% 80 MG, EPINEPHrine 0.2 MG, KETOROLAC TROMETHAMINE 30 MG in BAG 0 ML IU ONE; TRANEXAMIC ACID 1,500 MG in NS 100 ML IV ONE
--- NOTE | 2016-12-31 14:52 | GHP ---
[f rep st] PREOP HISTORY AND PHYSICAL DATE OF ADMISSION: An a.m. admission for surgery on 01/13/2017 PROBLEM: Left hip severe degenerative arthritis. HISTORY OF PRESENT ILLNESS: The patient is 81 years old. She has had progressive pain in her left hip for the last couple of years. She has a long history of chronic back pain. She has had a previous lumbar spine fusion with instrumentation in 2005. Recently, it has been confusing whether her hip pain has been coming from her back or from the hip itself. Her films show very severe degenerative arthritis of the left hip, with no remaining cartilage space. PAST MEDICAL HISTORY: She is treated for hypertension and depression. CURRENT MEDICATIONS: Apresoline for anxiety. Amlodipine 5 mg per day. She takes 1 baby aspirin per day. Atenolol 25 mg per day. Atorvastatin 40 mg per day. Bupropion 75 mg per day for depression. Cardia XT 120 mg per day. Fluticasone nasal spray 2 sprays per day. She is also on prednisone for polymyalgia rheumatica. This was first diagnosed in November of 2015. She is currently on 7 mg per day. DRUG ALLERGIES: Sulfa and gabapentin. METAL ALLERGY: None. LATEX ALLERGY: None. SOCIAL HISTORY: The patient is a . She lives alone in an apartment. She does not smoke cigarettes, and occasionally drinks alcohol. FAMILY HISTORY: Noncontributory. PHYSICAL EXAMINATION: VITAL SIGNS: Height 5 feet 2 inches. Weight 163 pounds. BMI 29.8. EYES: Conjunctivae and sclerae are clear. She has had bilateral cataract surgeries with lens implants. MOUTH: Good oral hygiene. CHEST: Clear. HEART: Regular rhythm. No murmurs. EXTREMITIES: Pertinent findings limited to her left hip. She has full hip extension and 100 degrees of flexion. External rotation 10 degrees. Internal rotation 10 degrees. Abduction 20 degrees. IMPRESSION ON ADMISSION: 1. Left hip severe degenerative arthritis, which is very symptomatic and limiting. She is prepared for a left total hip arthroplasty. 2. Treatment for hypertension. 3. Treatment for elevated cholesterol. 4. Treatment for depression/anxiety. 5. Treatment for intermittent atrial fibrillation. 6. Right hip moderate degenerative arthritis, which is only mildly symptomatic. 7. Polymyalgia rheumatica. PLAN: She will undergo a left total hip arthroplasty. The surgery has been described to her, including the risks, complications, expectations, and recovery time. I have discussed with her the risk of dislocation, leg length inequality, infection, and sciatic nerve injury. She lives alone and does not have any family in the area. She wants to go to [facility] following discharge from the hospital. She is thinking about relocating to [place], [place], in late December. All her questions have been answered, and she consents to surgery. /[id number]/MODL MTDD
[2017-01-13] MEDS ORDERED: POVIDONE-IODINE 20 ML in SODIUM CL IRRIG SOLUTION 500 ML IRR ONE (06:00)
--- NOTE | 2017-01-13 06:03 | PDANEPAE ---
ANE History of Present Illness 81 year old female with severe L hip DJD ANE Past Medical History - Cardiovascular History Hx Hypertension: Yes Hx Arrhythmias: Yes Hx Chest Pain: No Hx Coronary Artery / Peripheral Vascular Disease: Yes Hx CHF / Valvular Disease: No Hx Palpitations: No Cardiovascular History Comment: pcp monitors bp medications. bp has been running low. hyperlipidemia. non-obstructive CAD. 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 bronchitis earlier this year - Neurologic History Hx Cerebrovascular Accident: No Hx Seizures: No Hx Dementia: No Neurologic History Comment: lots of spine issues. spinal stenosis. hx of lumbar surgery l1-5 - Endocrine History Hx Diabetes: No Endocrine History Comment: pre-DM. HgB A1C 6.1 - Renal History Hx Renal Disorders: Yes Renal History Comment: renal impairment, difficulty with creat- pcp has her on low sodium diet. moderate CKD per labs from December 2016 - Liver History Hx Hepatic Disorders: No - Neurological & Psychiatric Hx Hx Neurological and Psychiatric Disorders: Yes Neurological / Psychiatric History Comment: anxiety - Cancer History Hx Cancer: No - Congenital Disorder History Hx Congenital Disorders: No - GI History Hx Gastrointestinal Disorders: Yes Gastrointestinal History Comment: reflux - Other Health History Other Health History: polymyalgia rheumatica. wears glasses. bruises from prednisone - Chronic Pain History Chronic Pain: Yes (left hip, lower back, pmr) - Surgical History Prior Surgeries: back surgery lumbar spine l1-5. marilee. cataracts ANE Review of Systems Review of Systems: - Exercise capacity METS (RN): 3 METS - Systems Respiratory: Reports: shortness of breath Muscolosketal: Reports: back pain, joint pain ANE Patient History - Allergies Allergies/Adverse Reactions: gabapentin [From Neurontin] Allergy (Verified 01/02/17 10:09) Other-Enter Comments Sulfa (Sulfonamide Antibiotics) Allergy (Verified 01/02/17 10:09) Rash - Home Medications Home medications: home medication list seen and reviewed Home Medications: ALPRAZolam [Xanax 0.25 MG (*)] 0.25 mg PO TID PRN 05/27/16 [Last Taken 01/13/17 04:00] Aspirin EC [Aspirin EC 81 mg (*)] 81 mg PO HS 05/27/16 [Last Taken 01/06/17] Atenolol [Tenormin 25 mg (*)] 25 mg PO HS 05/27/16 [Last Taken 01/12/17 19:00] Fluticasone Nasal [Flonase Nasal [place]] 2 sprays NS HS 05/27/16 [Last Taken 18:00] amLODIPine BESYLATE [Norvasc 5 mg (*)] 2.5 mg PO PRN PRN 05/27/16 [Last Taken ] buPROPion [Wellbutrin 75mg (*)] 75 mg PO BID 05/27/16 [Last Taken 01/13/17 04:00 ] predniSONE 7 mg PO DAILY 05/27/16 [Last Taken 01/12/17] Multivitamins [Multivitamin (*)] 1 each PO DAILY 11/11/16 [Last Taken 01/06/17] Ranitidine HCl [Zantac] 150 mg PO BID 11/11/16 [Last Taken 01/12/17] Diltiazem HCl [Cartia Xt] 120 mg PO DAILY 01/12/17 [Last Taken 01/12/17] Ondansetron Odt [Zofran Odt 4 mg (*)] 4 mg PO Q6HRS PRN 01/12/17 [Last Taken ] oxyCODONE IR [Oxycodone Ir (*)] 5 mg PO Q4HRS PRN 01/12/17 [Last Taken 01/13/17 01:00] traMADol [Ultram 50 mg (*)] 50 - 100 mg PO Q6HRS PRN 01/12/17 [Last Taken ] - NPO status NPO Status: no food or drink >8 hours - Anes Hx Anes Hx: no prior problems - Smoking Hx Smoking Status: Former smoker - Alcohol Use Alcohol Use: Rarely - Family Anes Hx Family Anes Hx: neg - N/A Family Hx Anesthesia Complications: none ANE Labs/Vital Signs - Labs - CBC WBC: reviewed - anemia noted - Labs - BMP Creatinine: reviewed- Cr 1.4 - moderate CKD - Vital Signs Vital Signs: reviewed preoperatively; see RN documention for details Height: 157.48 cm Weight: 73.482 kg ANE Physical Exam - Airway Mallampati Score: Class 3 Mouth exam: normal dental/mouth exam - Pulmonary Pulmonary: clear to auscultation - Cardiovascular Cardiovascular: regular rate and rhythym, systolic murmur - ASA Status ASA Status: III ANE Anesthesia Plan Anesthesia Plan: spinal
[2017-01-13] MEDS ORDERED: LR 1,000 ML IV ONE (06:09)
[2017-01-13] MEDS ORDERED: ceFAZolin 2 GM/DEXTROSE 100 ML IV ONE ×2 (06:09→09:54)
[2017-01-13] MEDS ORDERED: LIDOCAINE 1% 2 ML INJ ID PRN (06:09)
[2017-01-13] MEDS ORDERED: ACETAMINOPHEN 325 MG TAB PO ONE ×2 (06:09→09:54)
[2017-01-13] MEDS ORDERED: FAMOTIDINE 20 MG TAB PO ONE ×2 (06:09→09:54)
[2017-01-13] MEDS ORDERED: DEXAMETHASONE 4 MG/ML VIAL IVP ONE ×3 (06:09→09:54)
[2017-01-13] MEDS ORDERED: ceFAZolin 1 GM/5 ML SYR ONE (06:44)
--- NOTE | 2017-01-13 07:01 | PDHPUP ---
History & Physical Update H&P update statement: This history and physical update is based on an assessment of the patient which was completed after admission or registration (within 24 hours), but prior to the surgery/procedure. H&P update: H&P reviewed & patient examined, no change in patient's condition since H&P completed
[2017-01-13] MEDS ORDERED: fentaNYL 100 MCG/2 ML INJ ONE ×4 (07:11→10:01)
[2017-01-13] MEDS ORDERED: LIDOCAINE 2% 5 ML SDV ONE (07:11)
[2017-01-13] MEDS ORDERED: PROPOFOL 200 MG/20 ML VIAL ONE (07:11)
[2017-01-13] MEDS ORDERED: ROPI/epiNEPH/KETOROLAC JOINT COCKTAIL IU ONE (07:30)
[2017-01-13] MEDS ORDERED: DEXMEDETOMIDINE HCL 400 MCG in NS 100 ML IV SCH (07:30)
[2017-01-13] MEDS ORDERED: TRANEXAMIC ACID 1,500 MG in NS 100 ML IV ONE ×2 (07:30→09:54)
[2017-01-13] MEDS ORDERED: ROCURONIUM 50 MG/5 ML VIAL ONE (07:38)
[2017-01-13] MEDS ORDERED: LABETALOL HCL 5 MG/ML 20 ML MDV ONE (08:18)
[2017-01-13] MEDS ORDERED: ONDANSETRON 4 MG/2 ML VIAL ONE (08:46)
[2017-01-13] MEDS ORDERED: NALOXONE HCL 0.4 MG/ML INJ IVP PRN ×2 (08:57)
[2017-01-13] MEDS ORDERED: OXYCODONE/APAP 5/325 TAB PO PRN (08:57)
[2017-01-13] MEDS ORDERED: ALBUTEROL 3 ML DEYVIAL IH PRN (08:57)
[2017-01-13] MEDS ORDERED: LABETALOL HCL 50 MG/10 ML SYR IVP PRN (08:57)
[2017-01-13] MEDS ORDERED: ACETAMINOPHEN 500 MG TAB PO PRN (08:57)
[2017-01-13] MEDS ORDERED: LR 500 ML IV PRN (08:57)
[2017-01-13] MEDS ORDERED: PROMETHAZINE HCL 25 MG/ML INJ IVP PRN (08:57)
[2017-01-13] MEDS ORDERED: SUGAMMADEX SODIUM 200 MG/2 ML VIAL IVP ONE ×2 (09:07→09:09)
[2017-01-13] MEDS ORDERED: DIPHENOXYLATE/ATROPINE LOMOTIL 1 TAB PO PRN (09:21)
[2017-01-13] MEDS ORDERED: BISACODYL 10 MG SUPP PR PRN (09:21)
[2017-01-13] MEDS ORDERED: ONDANSETRON DISINTEGRATING 4 MG TAB PO PRN (09:21)
[2017-01-13] MEDS ORDERED: POLYETHYLENE GLYCOL 3350 17 GM PKT PO PRN (09:21)
[2017-01-13] MEDS ORDERED: ONDANSETRON 4 MG/2 ML VIAL IVP PRN (09:21)
[2017-01-13] MEDS ORDERED: TAPENTADOL HCL 50 MG TAB PO PRN (09:21)
[2017-01-13] MEDS ORDERED: PROMETHAZINE HCL 25 MG SUPPR PR PRN (09:21)
[2017-01-13] MEDS ORDERED: LACTULOSE 20 GM/30 ML UDCUP PO PRN (09:21)
[2017-01-13] MEDS ORDERED: MAGNESIUM HYDROXIDE 30 ML UDCUP PO PRN (09:21)
[2017-01-13] MEDS ORDERED: TEMAZEPAM 15 MG CAP PO PRN (09:21)
--- NOTE | 2017-01-13 09:21 | POSTOPPROG ---
Post Op Note Date of Operation: 01/13/17 Surgeon: Eliezer Taveras Wood Mechanist: Bright Chavira/Glory Julian Anesthesiologist: Ariel Anesthesia: GET(General Endotracheal) Post-op Diagnosis: Left hip severe degenerative arthritis. Procedure: Left total hip arthroplasty. Inf/Abcess present in the surg proc area at time of surgery?: No EBL: [id number]
[2017-01-13] MEDS ORDERED: oxyCODONE IR 5 MG TAB PO PRN (09:26)
[2017-01-13] MEDS ORDERED: amLODIPine BESYLATE 5 MG TAB PO PRN (09:26)
[2017-01-13] MEDS ORDERED: LR 1,000 ML IV SCH (09:30)
[2017-01-13] MEDS ORDERED: HYDROmorphONE/DILAUDID 1 MG/ML INJ ONE (09:31)
[2017-01-13] MEDS: fentaNYL 100 MCG/2 ML INJ IVP PRN ×4 (09:32→10:13)
[2017-01-13] MEDS: HYDROmorphONE/DILAUDID 1 MG/ML INJ IVP PRN ×2 (09:34→10:08)
[2017-01-13] MEDS ORDERED: ROPIVACAINE 0.2% 80 MG, EPINEPHrine 0.2 MG, KETOROLAC TROMETHAMINE 30 MG in BAG 0 ML IU ONE (09:54)
[2017-01-13] MEDS ORDERED: oxyCODONE IR 5 MG TAB ONE (10:01)
--- NOTE | 2017-01-13 10:29 | POSTANESTH ---
Post Anesthetic Evaluation Cardiovascular Status: Normal, Stable Respiratory Status: Normal, Stable Level of Consciousness/Mental Status: Can Participate in Eval, Alert and Oriented Pain Control: Inadeq, Add Tx Required Nausea/Vomiting Control: Adequate, Prn Tx Ordered Complications Possibly Related to Anesthesia: None Noted
--- NOTE | 2017-01-13 11:01 | GOP ---
[f rep st] OPERATIVE REPORT DATE OF OPERATION: 01/13/2017 SURGEON: Eliezer Taveras MD SHOWPLACE MANAGER: MELONIE Galindo RN ANESTHESIA: General. ANESTHESIOLOGIST: Honey Gamino MD. PREOPERATIVE DIAGNOSIS: Left hip severe degenerative arthritis. POSTOPERATIVE DIAGNOSIS: Left hip severe degenerative arthritis. PROCEDURE PERFORMED: FINDINGS: DESCRIPTION OF PROCEDURE: The patient was given 2 g of Ancef preoperatively within 60 minutes of wang jitendra. She also received IV tranexamic acid at a dose of 20 mg/kg. She was placed on the operating r oom table and Dr. Gamino attempted a spinal anesthetic. Because of the patient's previous spine fus ion, spinal anesthesia was unsuccessful. She was then placed supine and given general anesthesia. A Elizalde catheter was not used. She wore a ARIANE stocking and SCD on the nonoperative leg. She was roll ed to the right lateral decubitus position. The position was secured with the pegboard table attachm ent. An axillary roll was used, and all pressure points were carefully padded. I was careful to loc k her pelvis in a rigid vertical position. Her perineum was isolated with plastic adhesive drapes. The left hip and left lower extremity were prepped with ChloraPrep. They were draped free using ster ile sheets, stockinette, and Ioban plastic drapes. The [employer] time-out was performed to verify the correct surgical side and site and the correct patient identity. The [place] time-out was also performed. I made a 5-inch straight oblique posterolateral hip skin incision. Subcutaneous tissues were sharply divided, and hemostasis was obtained using electrocautery. She had a deep layer of subcutaneous fat . Her fascia josh was identified and split along the axis of its fibers. I then curved posteriorly and proximally, split the fascia of the gluteus teressa and bluntly split the muscle fibers in line w ith their orientation. The Charnley self-retaining retractor was inserted. Her sciatic nerve was lo cated, partially exposed, and protected throughout the procedure. The external rotators and the post erior hip capsule were divided as separate layers at the base of the femoral neck, tagged, and reflec ariane posteriorly. A smooth eighth-inch Steinmann pin was inserted vertically into the ilium, superior to the acetabulum. An eighth-inch drill bit was inserted vertically into the greater trochanter par allel to the first pin. The distance between the 2 was measured for leg length reference. Her femor al head was dislocated posteriorly. Very severe degenerative changes were present in her femoral hea d and acetabulum. Her femoral neck was osteotomized at the appropriate level and inclination. I was careful to preserve all the posterior capsule and most of the anterior capsule. The remnant of her damaged labrum was excised. I prepared the femur first. This allowed me to stove fitter the amount of natural femoral neck anteversion. She had approximately 10-12 degrees of natural femoral neck anteversion. Her canal was opened late rally with a box chisel. I power reamed with the starter reamer and then hand broached sequentially up to a size 4. I used a size 4 Accolate II broach as a trial stem. I was careful to lateralize blossom quately. Appropriate retractors were inserted to expose her acetabulum. The acetabulum was reamed sequentiall y up to 49 mm. I selected the 50 mm Helotes Tritanium cluster hole hemispherical shell. This was ta pped securely into place in the proper degree of inclination and anteversion. I used the transverse acetabular ligament and other acetabular bony landmarks to help me properly orient the cup. I insert ed 30 mm and 25 mm supplemental fixation screws through the shell. I also inserted a screw-in metal dome hole plug. I performed a series of trial reductions to determine proper length and stability. I concluded that the size 4 stem with a 0 mm neck, standard offset, and a 32 mm head with a 0-degree liner gave me the proper combination of appropriate length and good anterior and posterior stability. She was later 8 or 10 mm short, and I was intentionally lengthening her. The flush mounted Helotes X3 highly cross-linked polyethylene liner was inserted and tapped securely into place. I then chose the Elie Accolade II stem in size 4 with standard offset. This was inse rted and press-fit, and was a very tight fit. I did one final trial reduction and confirmed that the 0-neck length with a 32 mm head was the proper combination. The Elie cobalt chrome head with out side diameter 30 mm and a 0 neck length was tapped securely onto the clean trunnion. The acetabulum was irrigated and cleaned, and the hip was reduced one final time. She had excellent anterior and po sterior stability and appropriate length. 40 mL of the joint anesthetic cocktail was injected into the capsule, the deep musculature, and subcu taneous tissues along the skin edges. The joint was thoroughly irrigated one final time with a dilut e Betadine solution. Her sciatic nerve was reinspected and looked unharmed. The external rotators a nd the posterior hip capsule were repaired in separate layers with #2 FiberWire sutures through drill holes in the greater trochanter. This provided a strong posterior capsular and external rotator rep air. Her fascia josh was closed first with a couple of [id number] #2 FiberWire sutures followed by a running #2 barbed Ethicon Stratafix PDO suture. Subcutaneous tissues were closed with a runnin g 0 barbed Ethicon Stratafix Monoderm suture. The skin was closed with a running 3-0 barbed Ethicon Stratafix Monoderm subcuticular suture. The skin edges were reapproximated and sealed with Dermabond glue. The wound was covered with an Aquacel surgical dressing. A long-leg ARIANE stocking and SCD were applied to her left lower extremity. She wore a stocking and SC D on the opposite leg during the procedure. An abduction pillow was placed between her knees. She w as awakened from anesthesia and rolled to the supine position on her [facility]. She was taken to PACU in satisfactory condition. There were no recognized intraoperative complications. The estimated blood loss was about 200 mL. The sponge and needle count was correct on 2 occasions. I used a Elie Tritanium hemispherical press-fit cluster holed acetabular shell with an outside destini meter of 50 mm. The liner was a Helotes X3 0-degree highly crossed liner with an inside diameter of 30 mm. Her femoral component was a standard offset Elie Accolade II stem in a size 4 and press-fi t. The femoral head was a Helotes cobalt chrome head with a 0 neck length and a 32 mm outside diamet er. Bright Chavira and Glory Julian acted as surgical assistants. Their assistance was a medical necessi ty for safe completion of the procedure. OPERATION PERFORMED: Left total hip arthroplasty. /[id number]/[facility] [place]
[2017-01-13] MEDS: KETOROLAC 30 MG/1 ML SDV IVP PRN ×2 (11:46→17:39)
[2017-01-13] MEDS: CYCLOBENZAPRINE 10 MG TAB PO PRN ×2 (11:50→17:40)
[2017-01-13] MEDS: traMADol 50 MG TAB PO PRN ×2 (11:59→17:40)
[2017-01-13] MEDS: ceFAZolin 2 GM/DEXTROSE 100 ML IV SCH ×2 (14:39→21:12)
--- NOTE | 2017-01-13 16:25 | ASMTCMCOM ---
CM Note CM Note Notes: Pt would like to d/c to [facility], referral sent and [facility] can accept pt when medically stable. CM to follow. Date Signed: 01/13/2017 04:25 PM Electronically Signed By:MAURO Agustin
[2017-01-13] MEDS: ALPRAZolam 0.25 MG TAB PO PRN (17:43)
[2017-01-13] MEDS ORDERED: ATENOLOL 25 MG TAB PO SCH (21:00)
[2017-01-13] MEDS ORDERED: FLUTICASONE NASAL 120 SPRAYS/16 GM MDI NS SCH (21:00)
[2017-01-13] MEDS ORDERED: NON-FORMULARY NEW DRUG (Ranitidine Hcl [Zantac] 150 MG) PO SCH (21:00)
[2017-01-13] MEDS: SENNOSIDES/DOCUSATE SODIUM TAB PO SCH (21:10)
[2017-01-13] MEDS: FAMOTIDINE 20 MG TAB PO SCH (21:10)
[2017-01-13] MEDS: buPROPion 75 MG TAB PO SCH (21:11)
[2017-01-13] MEDS: ASPIRIN 325 MG TAB PO SCH (22:00)
[2017-01-14] MEDS: KETOROLAC 30 MG/1 ML SDV IVP PRN ×3 (00:05→10:58)
[2017-01-14] MEDS: traMADol 50 MG TAB PO PRN ×3 (00:06→10:59)
[2017-01-14] MEDS: CYCLOBENZAPRINE 10 MG TAB PO PRN ×2 (02:56→10:59)
[2017-01-14 06:08] LABS: HEMATOCRIT 27.4 % (38.0-47.0); HEMOGLOBIN 9.4 g/dL (12.6-16.3)
[2017-01-14 06:24] LABS: ANION GAP 10 mEq/L (8-16); CALCIUM 8.9 mg/dL (8.5-10.4); CARBON DIOXIDE 25 mEq/l (22-31); CHLORIDE 98 mEq/L (97-110); CREATININE 1.4 mg/dL (0.6-1.0); GLOMERULAR FILTRATION RATE 36; GLUCOSE 148 mg/dL (70-100); POTASSIUM 3.5 mEq/L (3.5-5.2); SODIUM 133 mEq/L (134-144)
[2017-01-14] MEDS: ASPIRIN 325 MG TAB PO SCH (08:38)
[2017-01-14] MEDS: SENNOSIDES/DOCUSATE SODIUM TAB PO SCH (08:38)
[2017-01-14] MEDS: buPROPion 75 MG TAB PO SCH (08:38)
[2017-01-14] MEDS: FAMOTIDINE 20 MG TAB PO SCH (08:38)
[2017-01-14] MEDS: ALPRAZolam 0.25 MG TAB PO PRN (08:49)
[2017-01-14] MEDS ORDERED: FERROUS SULFATE 140 MG TAB.ER PO SCH (09:00)
[2017-01-14] MEDS ORDERED: ATORVASTATIN CALCIUM 40 MG TAB PO SCH (09:00)
[2017-01-14] MEDS ORDERED: MULTIVITAMINS 1 EACH TAB PO SCH (09:00)
[2017-01-14] MEDS ORDERED: predniSONE 1 MG TAB PO SCH (09:00)
[2017-01-14] MEDS ORDERED: DILTIAZEM CD 120 MG CAP PO SCH (09:00)
--- NOTE | 2017-01-14 09:46 | SOAPPROG ---
SOAP Progress Note Assessment/Plan: Assessment: Afebrile. Awake and alert. She has already been walking in the bloom. Mild pain. Her dressing is dry. Sciatic nerve intact. Postop x-rays look excellent. Postop labs are satisfactory. Plan: Continue physical therapy. Transfer to [facility] today. 01/14/17 09:45 Objective: Vital Signs Temp Pulse Resp BP Pulse Ox 37.1 C 72 16 145/79 H 94 01/14/17 04:00 01/14/17 04:00 01/14/17 04:00 01/14/17 04:00 01/14/17 04:00 Laboratory Results 01/14/17 04:19 01/14/17 04:19 01/13/17 01/14/17 01/15/17 05:59 05:59 05:59 Intake Total 1950 Output Total 1550 Balance 400 ICD10 Worksheet Patient Problems: Problems Problem Status Onset Osteoarthritis of left hip Acute Dyspnea Acute
--- NOTE | 2017-01-14 09:57 | PDIAF ---
- Diagnosis Code Status: Full Code - Medication Management Discharge Medications: Medications to Continue on Transfer ALPRAZolam [Xanax 0.25 MG (*)] 0.25 mg PO TID PRN 05/27/16 [Last Taken 01/13/17 04:00] Atenolol [Tenormin 25 mg (*)] 25 mg PO HS 05/27/16 [Last Taken 01/12/17 19:00] Fluticasone Nasal [Flonase Nasal [place]] 2 sprays NS HS 05/27/16 [Last Taken 18:00] amLODIPine BESYLATE [Norvasc 5 mg (*)] 2.5 mg PO PRN PRN 05/27/16 [Last Taken ] buPROPion [Wellbutrin 75mg (*)] 75 mg PO BID 05/27/16 [Last Taken 01/13/17 04:00 ] predniSONE 7 mg PO DAILY 05/27/16 [Last Taken 01/12/17] Atorvastatin Calcium [Lipitor 40 mg (*)] 40 mg PO DAILY #30 tab 05/29/16 [Last Taken 01/12/17 08:00] Diltiazem HCl [Cartia Xt] 120 mg PO DAILY 01/12/17 [Last Taken 01/12/17] oxyCODONE IR [Oxycodone Ir (*)] 5 mg PO Q4HRS PRN 01/12/17 [Last Taken 01/13/17 01:00] Aspirin EC [Aspirin EC 81 mg (*)] 81 mg PO HS #0 01/14/17 [Last Taken 01/06/17] Aspirin [Aspirin 325 mg (*)] 325 mg PO DAILY tab 01/14/17 [Last Taken Unknown] Ferrous Sulfate [Slow Fe 140 MG (*)] 140 mg PO DAILY tab.er 01/14/17 [Last Taken Unknown] Multivitamins [Multivitamin (*)] 1 each PO DAILY tab 01/14/17 [Last Taken Unknown] Ondansetron Odt [Zofran Odt 4 mg (*)] 4 mg PO Q4HRS PRN #15 tab 01/14/17 [Last Taken Unknown] Sennosides/Docusate Sodium [Senokot-S] 1 - 2 tab PO BID tab 01/14/17 [Last Taken Unknown] traMADol [Ultram 50 mg (*)] 50 mg PO Q6HRS PRN #30 tab 01/14/17 [Last Taken Unknown] Discharge Medications: Refer to the Discharge Home Medication list for PRN reason. - Orders Diet Recommendation: no restrictions on diet Diet Texture: Regular Texture Diet Alexandre Stockings Discontinue Date: one week Activity/Weight Bearing Restrictions: wgt bear as tolerated - Follow Up Care Current Providers and Referrals: Caroline Nevarez CERTIFIED PROSTHETIST VICE PRESIDENT [Primary Care Provider] - Eliezer Taveras MD [Medical Doctor] - 02/05/17 10:30 am
[2017-01-14 10:02] VITALS: PULSE 76; TEMP 98.1; O2SAT 96
[2017-01-14 10:06] VITALS: BP 158/74; RESP 18
--- NOTE | 2017-01-14 10:12 | GDS ---
[f rep st] DISCHARGE SUMMARY PREOPERATIVE DIAGNOSIS: Left hip severe degenerative arthritis. DISCHARGE DIAGNOSIS: Left hip severe degenerative arthritis. OPERATION PERFORMED: 01/13/2017, a left total hip arthroplasty. POSTOPERATIVE COMPLICATIONS: None. CONDITION ON DISCHARGE: Improved. DESCRIPTION OF HOSPITAL COURSE: The patient was admitted to the hospital the morning of surgery. He r admission white blood cell count was 13,560. H and H 11.8 and 35.2. BUN 19, creatinine 1.4. The same day, under general anesthesia, she underwent a left total hip arthroplasty. Postoperatively, sudeep goncalves was treated with multimodal DVT prophylaxis, including aspirin. On the first postoperative day, he r hemoglobin and hematocrit were 9.4 and 27.4. She did not require transfused blood. Her BUN and cr eatinine were stable at 22 and 1.4. She was seen by Physical Therapy and made excellent progress wit h ambulation and stairs. By the time of discharge, she was afebrile, her wound was clean and dry, an d she was independent walking with a walker. DISPOSITION: The patient discharged to [facility]. She will continue aspirin 325 mg p.o. daily for 21 days. She has prescriptions for oxycodone and tramadol for pain control. Use an abduction p illow in bed for 3 weeks. I will see her back in the office on February 05, 2017 at 10:30 a.m. If th ere are any problems, she is to call me at the office. /[id number]/[facility]
--- NOTE | 2017-01-14 11:51 | ASMTCMCOM ---
CM Note CM Note Notes: Pt medically stable for d/c to [facility], orders sent. GENNARO Chavis called report. [facility] set up transport for 1200. Date Signed: 01/14/2017 11:51 AM Electronically Signed By:MAURO Agustin
--- NOTE | 2017-01-14 12:17 | ASDISCHSUM ---
Discharge Information Plan Status:SNF Medically Cleared to Leave: Discharge Date:01/14/2017 12:11 PM CM D/C Disposition:Shelter Facility ADT D/C Disposition:Shelter Facility Projected Discharge Date:01/14/2017 11:00 AM Transportation at D/C:Wheelchair Van Discharge Delay Reason: Follow-Up Date:01/14/2017 11:00 AM Discharge Slot: Final Diagnosis: Placement Information Referral Type:*Jail/SNF Referral ID:[id number] Provider Name:Connie Conway Address 1:[address] Phone Number: Address 2: Fax Number: City:[place] Selection Factors: State:[place] Patient Contact Information Contact Name:ANN Relationship:Son Address: Work Phone: City: [facility] Phone: [facility] Code: Email: Financial Information Financial Class: Primary Plan Desc:MEDICARE INPATIENT Primary Plan Number:[id number] Secondary Plan Desc:[employer]/MDR SUPPLEMENT Secondary Plan Number:[id number] Assessment Information [facility] CM Progress Note CM Note CM Note Notes: Pt would like to d/c to [facility], referral sent and [facility] can accept pt when medically stable. CM to follow. Date Signed: 01/13/2017 04:25 PM Electronically Signed By:MAURO Agustin [facility] CM Progress Note CM Note CM Note Notes: Pt medically stable for d/c to [facility], orders sent. GENNARO Chavis called report. [facility] set up transport for 1200. Date Signed: 01/14/2017 11:51 AM Electronically Signed By:MAURO Agustin Intervention Information
== END 2017-01-14 12:11 | DRG 470 ==
LOC: F3N 01-13 05:34
PROVIDERS: ADMIT Orthopaedic Surgery; ATTEND Orthopaedic Surgery
PROC: 0SRB04Z Replacement of Left Hip Joint with Ceramic on Polyethylene Synthetic Substitute, Open Approach (ICD-10-PCS; principal; 2017-01-13 07:15)
DX: M16.12 Unilateral primary osteoarthritis, left hip (principal); I10 Essential (primary) hypertension; E78.00 Pure hypercholesterolemia, unspecified; F41.8 Other specified anxiety disorders; I48.0 Paroxysmal atrial fibrillation; M35.3 Polymyalgia rheumatica; I25.10 Atherosclerotic heart disease of native coronary artery without angina pectoris; Z98.1 Arthrodesis status
CPT/HCPCS: 97116-GP; 97161-GP; 97165-GO; 97530-GP; C1713; G8978-GP-CJ; G8979-GP-CI; G8987-GO-CK; G8988-GO-CI; J0171; J0690; J1100; J1170; J1885; J2405; J2704; J2795; J3010; J3490